=== PATIENT | female | born 1970 | race Caucasian/White ===

== ENCOUNTER 2021-04-29 16:48 | Emergency (ER) | payer OTHER ==
[~2021-04-29] VITALS: Ht 154.9 cm; Wt 81.7 kg
[2021-04-29 17:49] LABS: BASOPHILS ABSOLUTE AUTO 0.05 K/mm3 (0.00-0.23); BASOPHILS PERCENT AUTO 1 % (0-2); EOSINOPHILS PERCENT AUTO 2 % (0-6); Hematocrit 30.8 % (33.0-51.0); Hemoglobin 9.1 g/dL (11.5-16.0); IMMATURE GRAN ABSOLUTE AUTO 0.01 K/mm3 (0.00-0.10); IMMATURE GRAN PERCENT AUTO 0 % (0-1); LYMPHOCYTES ABSOLUTE AUTO 0.97 K/mm3 (0.84-5.20); LYMPHOCYTES PERCENT AUTO 17 % (21-46); MONOCYTES ABSOLUTE AUTO 0.62 K/mm3 (0.16-1.47); MONOCYTES PERCENT AUTO 11 % (4-13); Mean Corpuscular HGB 22.6 pg (26.0-34.0); Mean Corpuscular HGB Conc 29.5 g/dL (31.5-36.5); Mean Corpuscular Volume 77 fL (80-100); Mean Platelet Volume 10.8 fL (9.1-12.4); NEUTROPHILS ABSOLUTE AUTO 4.04 K/mm3 (1.96-9.15); NEUTROPHILS PERCENT AUTO 70 % (41-73); Platelet Count 163 K/mm3 (150-400); RDW Coefficient Variation 24.1 % (11.7-14.2); RDW Standard Deviation 64.5 fL (35.1-46.3); Red Blood Cell Count 4.02 M/mm3 (3.80-5.20); White Blood Cell Count 5.79 K/mm3 (4.00-11.30)
[2021-04-29 18:10] LABS: Troponin I <0.015 ng/mL (0.000-0.040)
[2021-04-29 18:19] LABS: Alanine Aminotransfer (ALT/SGP 105 U/L (12-78); Albumin, Blood 2.4 g/dL (3.4-5.0); Albumin/Globulin Ratio 0.7 (0.8-1.8); Alk Phos 226 U/L (50-136); Anion Gap 6 mmol/L (6-16); Aspartate Aminotrans (AST/SGOT 186 U/L (12-37); Bilirubin, Total 2.2 mg/dL (0.1-1.0); Blood Urea Nitrogen 9 mg/dL (8-24); Bun/Creatinine Ratio 12.1 (12.0-20.0); CO2, Blood 32 mmol/L (21-32); Calcium, Blood 8.1 mg/dL (8.5-10.1); Chloride, Blood 98 mmol/L (98-108); Creatinine, Blood 0.75 mg/dL (0.40-1.00); Globulin, Blood 3.6 g/dL (2.2-4.0); Glomerular Filtration Rate >60 (60-); Glucose, Blood 133 mg/dL (70-99); Potassium, Blood 2.4 mmol/L (3.5-5.5); Sodium, Blood 136 mmol/L (136-145)
[2021-04-29] MEDS ORDERED: SPIR50 PO (19:02)
[2021-04-29] MEDS ORDERED: POTA20PAC PO (19:02)
[2021-04-29 19:35] LABS: Source, Urine Clean Catch
[2021-04-29 19:39] LABS: Appearance, Urine Clear (Clear); Blood, Urine 1+ (Neg); Color, Urine Amber (P-Yellow); Glucose Qualitative, Urine Neg (Neg); Ketones, Urine 1+ (Neg); Leukocyte Esterase, Urine 3+ (Neg); Nitrite, Urine Pos (Neg); Protein, Urine 2+ (Neg); Urobilinogen, Urine 4+ (Normal)
[2021-04-29 19:59] LABS: Bilirubin, Urine 3+ (Neg)
[2021-04-29 20:02] LABS: Bacteria Many /hpf; Calcium Oxalate Crystals Many /hpf; Mucus Mod (0-Heavy); Squamous Epithelial Cells Mod /hpf (Few)
== END 2021-04-29 20:31 | disposition home or self-care (01) ==
LOC: ER 16:48
PROVIDERS: Physician Assistant
DX: R60.0 Localized edema (principal); K70.9 Alcoholic liver disease, unspecified; F10.10 Alcohol abuse, uncomplicated; E87.6 Hypokalemia
CPT/HCPCS: 80053; 81001; 83735; 83880; 84484; 85025; 87077; 87086; 87186; 99284; A9270